=== PATIENT | male | born 1995 | race Caucasian/White ===

== ENCOUNTER 2022-03-01 20:44 | Emergency (ER) | payer OTHER, BC, SELFPAY ==
--- NOTE | ~2022-03-01 | CT_ITS ---
EXAMINATION: CT HEAD WITHOUT CONTRAST CLINICAL INFORMATION: Low-dose head injury. COMPARISON: None TECHNIQUE: Contiguous axial imaging was performed from the skull base to vertex without intravenous administration of contrast. This CT examination was performed using dose optimization techniques as appropriate, variously including the following: *Automated exposure control *Adjustment of mA and/or kV according to patient size (this includes techniques or standardized protocols for targeted exams where dose is matched to indication/reason for exam; i.e. extremities or head) *Use of iterative reconstruction technique DLP: 675 mGy-cm FINDINGS: There is no evidence of acute intracranial hemorrhage or territorial infarction. No abnormal mass effect or midline shift is seen. Gallo to white matter differentiation is well preserved. No extra-axial fluid collections are identified. The ventricles are normal in size. There is no abnormal attenuation within the brain parenchyma. The osseous structures and soft tissues are normal. There is mild mucoperiosteal thickening bilateral anterior ethmoid sinuses. Rest of the paranasal sinuses and mastoid air cells are clear. . CT/CT head/brain wo con IMPRESSION: No acute intracranial process seen.
[2022-03-01 21:08] VITALS: BP 123/78; PULSE 91; RESP 19; TEMP 36.6; O2SAT 100; BMI 22.4
--- NOTE | 2022-03-01 21:49 | ED.HEATRA ---
HPI - Head Injury General Chief complaint: Head Injury Stated complaint: Head inj Time Seen by Provider: 03/01/22 21:48 Source: patient Mode of arrival: ambulatory Limitations: no limitations History of Present Illness HPI Narrative: Patient was at work in a greenhouse pole under tension snapped and hit his right side of the head small laceration of the right pinna no loss of consciousness no vomiting complaining of mild headache no other injuries Related Data Allergies Allergy/AdvReac Type Severity Reaction Status Date / Time Penicillins Allergy Unknown Verified 03/01/22 21:11 Review of Systems Review of Systems: Yes all other systems are reviewed and are negative FOR[facility]LY [facility] Social History Social History Advance Directives: No Advance Directives Information Provided: No Physical Exam Vital Signs: Vital Signs: Last Vital Signs Temp 98.2 F 03/01/22 22:45 Pulse 88 03/01/22 22:45 Resp 17 03/01/22 22:45 BP 125/84 03/01/22 22:45 Pulse Ox 99 03/01/22 22:45 BMI result Body Mass Index 22.4 Appearance: Alert. Oriented X3. No acute distress. Eyes: PERRLA, HEENT: Pharynx normal. Oral Mucosa moist slight swelling of the right temporal scalp, small laceration 0.5 cm right pinna Neck: Normal inspection. Neck supple. CVS: Normal heart rate and rhythm. Pulses normal. Respiratory: No respiratory distress. Equal air entry bilateral, no wheezing/rales/rhonchi Abdomen: Soft and nontender. Bowel sounds are present, Skin: Skin warm and dry. Normal skin color. Normal skin turgor. Extremities: No lower extremity edema. No calf tenderness Neuro: Oriented X 3. No motor deficit. No sensory deficit.No cerebellar signs , cranial nerves II-XII intact HEENT: Outer ear/TM images: 1. Superficial laceration 0.5 cm Procedures Laceration Laceration 1: Site: other (Right ear pinna) Side (If applicable): right Size (cm): 0.5 Description: linear Depth: simple, single layer Skin layer closed with: other (Dermabond) Discharge Plan Discharge Clinical Impression: Closed head injury, Laceration of ear Patient Disposition: Home, Self-Care Instructions: Laceration (ED), Head Injury (ED) Additional Instructions: Rest at home Tylenol/Motrin for pain Report to ER if seizures/loss of consciousness/any focal weakness/vomiting Dermabond was applied on Small laceration of the right ear which will heal Interventions: ED Discharge Assessment Last Done: 03/01/22 23:01 Discharge Date/Time: 03/01/22 23:05
[2022-03-01 22:45] VITALS: BP 125/84; PULSE 88; RESP 17; TEMP 36.8; O2SAT 99
== END 2022-03-01 23:05 | disposition home or self-care (01) ==
PROVIDERS: Emergency Provider Internal Medicine
DX: S01.311A Laceration without foreign body of right ear, initial encounter (principal); G44.309 Post-traumatic headache, unspecified, not intractable; W26.9XXA Contact with unspecified sharp object(s), initial encounter; Y93.9 Activity, unspecified; Y92.9 Unspecified place or not applicable; Y99.0 Civilian activity done for income or pay
CPT/HCPCS: 12011; 70450; 99284